=== PATIENT | female | born 1990 | race Caucasian/White ===

== ENCOUNTER 2019-05-24 11:17 | Emergency (ER) | payer OTHER ==
--- OUTSIDE RECORDS SUMMARY | 2019-05-24 11:47 | XMS REPORT | Continuity of Care Document ---
:1990 External Reference #:[id number] Author Name Alden Lawson PA Address [address] [place] [address] Problems Active Problems Provider Date Moderate major depression, single episode Alden Lawson PA Onset: 06/18/2018 Mild persistent asthma Alden Lawson PA Onset: 06/18/2018 History of concussion injury of brain Alden Lawson PA Onset: 06/18/2018 Note: x2 -- 2012 [college] and 2017 [fall on ice] Social History Type Date Description Comments Sex Unknown ETOH Use Occasionally consumes wine Tobacco Use Start: Unknown Patient has never smoked Recreational Drug Use Denies Drug Use Smoking Status Reviewed: 04/22/19 Patient has never smoked Exercise Type/Frequency Lefting Running X 3 Weekly Sun Exposure moderate amount of sun exposure Sun Exposure Uses sunscreen Seat Belt/Car Seat always uses seat belt Guns in Home No Recent Travel There has not been recent travel abroad Allergies, Adverse Reactions, Alerts Description No Known Drug Allergies Medications Active Medications SIG Qnty Indications Ordering Date Provider Breo Ellipta 1 puff daily 3month J45.30 Suzette Tapia 11/05/2017 MD Yesenia 100-25mcg/Inh Aerosol Proair HFA 2 puffs every 6 8.500gm J45.30 Suzette Tapia 11/05/2017 hours as needed MD Yesenia 108(90Base) mcg/Act wheezing/sob [may Aerosol substitute covered med] BCP Suzette Tapia 09/10/2017 MD Yesenia History Medications Amoxicillin/Clavulanate 1 by mouth 20tabs J01.90 Regina 02/02/2019 - Potassium every 12 Suzette Patterson MD 02/12/2019 875-125mg Tablets hours Medications Administered in Office Medication SIG Qnty Indications Ordering Provider Date Albuterol Up To 2.5mg & Suzette Tapia MD 11/05/2017 Ipatropium [place] Up To 0.5mg Non-Compd Injection Immunizations CPT Code Status Date Vaccine Lot # [id number] Given 04/22/2019 Influenza Vac, Quadrivalent, Split, 0.5mL Dosage, [id number] Im Use [id number] Given 06/18/2018 Influenza Vac, Quadrivalent, Split, 0.5mL Dosage, [id number] Im Use Vital Signs Date Vital Result Comment 04/22/2019 8:33am Weight 150.00 lb Heart Rate 93 /min BP Systolic 129 mmHg BP Diastolic 73 mmHg Height 66.5 inches 5'6.50" BMI (Body Mass Index) 23.8 kg/m2 02/02/2019 2:12pm Body Temperature 99.3 F Weight 149.00 lb Heart Rate 68 /min BP Systolic 116 mmHg BP Diastolic 81 mmHg Height 66.5 inches 5'6.50" BMI (Body Mass Index) 23.7 kg/m2 Results Description No Information Available Procedures Description No Information Available Medical Devices Description No Information Available Encounters Type Date Location Provider Dx Diagnosis Office Visit 02/02/2019 Alden Magaña PA J01.90 Acute sinusitis, 2:40p unspecified F32.1 Major depressive disorder, single episode, moderate Office Visit 11/20/2018 8:40a Alden Magaña PA F32.1 Major depressive disorder, single episode, moderate J45.30 Mild persistent asthma, uncomplicated S06.0x0S Concussion without loss of consciousness, sequela Z68.25 Body mass index (BMI) 25.0-25.9, adult Assessments Date Code Description Provider 04/22/2019 F32.1 Major depressive disorder, single episode, Alden Lawson PA moderate 04/22/2019 J45.30 Mild persistent asthma, uncomplicated Alden Lawson PA 04/22/2019 S06.0x0S Concussion without loss of consciousness, Alden Lawson PA sequela 04/22/2019 Z23 Encounter for immunization Alden Lawson PA 02/02/2019 J01.90 Acute sinusitis, unspecified Alden Lawson PA 02/02/2019 F32.1 Major depressive disorder, single episode, Alden Lawson PA moderate 11/20/2018 F32.1 Major depressive disorder, single episode, Alden Lawson PA moderate 11/20/2018 J45.30 Mild persistent asthma, uncomplicated Alden Lawson PA 11/20/2018 S06.0x0S Concussion without loss of consciousness, Alden Lawson PA sequela 11/20/2018 Z68.25 Body mass index (BMI) 25.0-25.9, adult Alden Lawson PA Plan of Treatment Future Appointment(s):10/21/2019 9:00 am - Alden Lawson PA at [id number] - Alden Lawson, PAF32.1 Major depressive disorder, single episode, moderateComments:no FH.Lost grandparent in July. No specific trigger. h/o anxiety 9th grade. 4months counseling felt like came thru. Doing daily meditation. trying to keep active. Feels like started in Jun 2017has joined the [employer] and was invited out to the [employer] for [employer]. +allowing herself to leave and go home. +BF finding time to leave work also. Able to let things go more easily. +still with days or up and down but very much improved. ??Anxiety vs OCPD. doing very well at 100mg. no complaints. has been more open with everyone surrounding her. will monitor weight gain. up 15lbs but stable at this point. ??sedentary job vs meds. "worth it with the mental clarity." UPDATE 09/17:would like to try to wean back. has many tools in place. +exercising. +meditation. +engaged. UPDATE 11/20:weaning back Sertraline and doing okay. UPDATE 02/02:off med and losing weight. feelinggood overall. UPDATE 04/22:doing extremely well off meds. father with double bypass surgery and planning wedding -- feeling okay and managing.Follow up:f/u 6months PEJ45.30 Mild persistent asthma, uncomplicatedComments:Breo samples given and "breathing so much better." Recheck PFT with improved fxn. Rx breo sent to pharmacy . 20% improvement with PFT with Breo 100. UPDATE 04/22:stable on Breo. occasionalAlbuterol usage.S06.0x0S Concussion without loss of consciousness, sequelaComments:concussion with a sip and fall on ice couple weeks ago. no residual effects. just returned to working out. h /o concussion x1 in college. no issues.Z23 Encounter for immunization Functional Status Description No Information Available Mental Status Description No Information Available Referrals Description No Information Available
--- NOTE | 2019-05-24 14:20 | ED ---
Abdominal Pain/Female - HPI Summary HPI Summary: Patient is a 28-year-old female who presents emergency department for pelvic pain and cramping 3 days. Patient notes that she has irregular periods of believes she is due to start her period soon. Patient states cramping felt different than typical menstrual cramps. Patient notes some increased clear discharge a few days ago that has resolved. She also notes urine discoloration a few days ago as well which has resolved. Patient otherwise denies fever, vomiting, diarrhea. Patient has no past medical history. Symptoms are moderate in severity. No current modifying factors. - History of Current Complaint Chief Complaint: EDUrogenitalProblems Stated Complaint: PELVIC PAIN PER PT Time Seen by Provider: 05/24/19 13:53 Hx Obtained From: Patient Hx Last Menstrual Period: 04/15/16 Pain Intensity: 5 Allergies/Adverse Reactions: Allergies Allergy/AdvReac Type Severity Reaction Status Date / Time No Known Allergies Allergy Verified 05/24/19 11:31 Home Medications: Home Medications Loratadine/Pseudoephedrine [Claritin-D 12 Hour Tablet] 1 each PO DAILY 05/24/19 [History Confirmed 05/24/19] Multivitamins/Minerals TAB* [Thera M Plus TAB*] 1 tab PO DAILY 05/24/19 [ History Confirmed 05/24/19] PMH/Surg Hx/FS Hx/Imm Hx Previously Healthy: Yes Infectious Disease History: No Infectious Disease History: Denies: Traveled Outside the [place] in Last 30 Days - Family History Known Family History: Positive: Non-Contributory Negative: Blood Disorder - Social History Occupation: Employed Full-time Lives: With Family Alcohol Use: Rare Substance Use Type: Reports: None Smoking Status (MU): Never Smoked Tobacco Review of Systems Constitutional: Negative Negative: Fever, Chills Cardiovascular: Negative Respiratory: Negative Gastrointestinal: Negative Genitourinary: Other - Pelvic pain Skin: Negative All Other Systems Reviewed And Are Negative: Yes Physical Exam Triage Information Reviewed: Yes Vital Signs On Initial Exam: Initial Vitals Temp Pulse Resp BP Pulse Ox 98.6 F 90 18 139/97 100 05/24/19 11:29 05/24/19 11:29 05/24/19 11:29 05/24/19 11:29 05/24/19 11:29 Vital Signs Reviewed: Yes Appearance: Positive: Well-Appearing - Pt. lying in bed in NAD. SO present. Skin: Positive: Warm, Dry Head/Face: Positive: Normal Head/Face Inspection Eyes: Positive: Normal, EOMI Neck: Positive: Supple Respiratory/Lung Sounds: Positive: Clear to Auscultation, Breath Sounds Present Cardiovascular: Positive: Normal, RRR Abdomen Description: Positive: Other: - Abd. is soft with tenderness to R and L adnexa. No rebound or guarding. No CVA tenderness. Pelvic Exam: Positive: Other - Pelvic exam performed with [facility]. External genitalia unremarkable. Speculum reveals a small amount of bleeding from cervix. Negative CMT. No purulent discharge. Neurological: Positive: Normal, CN Intact II-III Psychiatric: Positive: Affect/Mood Appropriate Procedures - Sedation Patient Received Moderate/Deep Sedation with Procedure: No Diagnostics - Vital Signs Vital Signs Temp Pulse Resp BP Pulse Ox 05/24/19 13:09 98.5 F 88 16 114/76 100 05/24/19 11:29 98.6 F 90 18 139/97 100 - Laboratory Result Diagrams: 05/24/19 15:07 05/24/19 15:07 Lab Statement: Any lab studies that have been ordered have been reviewed, and results considered in the medical decision making process. Abdominal Pain Fem Course/Dx - Course Course Of Treatment: Patient presenting with pelvic pain/cramping. She is afebrile and well-appearing. Laboratory studies show normal CBC and negative . Urinalysis negative for infection. Transvaginal ultrasound ordered to evaluate for ovarian torsion and/or ovarian cyst and was negative for acute findings per radiology. Pelvic exam shows small amount of blood from cervix. Suspect patient is starting her menstrual cycle. Cultures were obtained and pending. Patient comfortable with DC home to follow-up with [facility]. Anti- inflammatories as directed for pain. Will call if cultures are positive. We' ll return to ER symptoms change or worsen. Patient understands and agrees with plan. - Diagnoses Differential Diagnosis: Positive: Appendicitis, Constipation, Ovarian Cyst, Pelvic Inflammatory Disease, , Urinary Tract Infection Provider Diagnoses: Pelvic pain, Dysmenorrhea Discharge ED - Sign-Out/Discharge Documenting (check all that apply): Patient Departure - Discharge Plan Condition: Good Disposition: HOME Patient Education Materials: Pelvic Pain in Women (ED) Referrals: Lupe Almeida MD [Medical Doctor] - Alden Lawson [Primary Care Provider] - Additional Instructions: Schedule a close follow up appointment with [facility] for further evaluation of pain Ibuprofen for pain as directed Can apply warm compress to help with pain Will call if cultures are positive Return to ER if symptoms change or worsen - Billing Disposition and Condition Condition: GOOD Disposition: Home - Attestation Statements Provider Attestation: I was available for consultation for this patient. I did not evaluate the patient, or participate in any medical decision making or disposition decisions unless I am specifically named in the chart as having consulted on the patient. If I have consulted on the patient, please see my own ED note on the patient encounter. Mary Mccormack MD
[2019-05-24 14:37] LABS: Urine Appearance Clear; Urine Color Straw; Urine Specific Gravity 1.005 (1.010-1.030)
[2019-05-24 14:38] LABS: Urine Bilirubin Negative (Negative); Urine Blood Negative (Negative); Urine Glucose Negative (Negative); Urine Ketones Negative (Negative); Urine Nitrite Negative (Negative); Urine Protein Negative (Negative); Urine Urobilinogen Negative (Negative)
[2019-05-24 15:18] LABS: ABS Lymphocytes 1.4 10^3/ul (1.0-4.8); ABS Monocytes 0.4 10^3/ul (0-0.8); ABS Neutrophils 3.3 10^3/ul (1.5-7.7); Eosinophil % 0.1 %; Hematocrit 37 % (35-47); Hemoglobin 12.6 g/dL (12.0-16.0); Lymphocyte % 26.8 %; Mean Corpuscular HGB Conc 34 g/dL (31-36); Mean Corpuscular Hemoglobin 30 pg (27-31); Mean Corpuscular Volume 88 fL (80-97); Mean Platelet Volume 8.5 fL (7.4-10.4); Nucleated Red Blood Cells % 0.1; Platelet Count 164 10^3/uL (150-450); Red Blood Count 4.15 10^6 /uL (3.70-4.87); Red Cell Distribution Width 12 % (10-15); White Blood Count 5.1 10^3/uL (3.5-10.8)
[2019-05-24 15:42] LABS: HCG Pregnancy < 0.60 mIU/mL
[2019-05-24 15:52] LABS: ALT 10 U/L (7-52); AST 14 U/L (13-39); Albumin 4.6 g/dL (3.2-5.2); Albumin/Globulin Ratio 2.3 (1-3); Alkaline Phosphatase 41 U/L (34-104); Anion Gap 5 mmol/L (2-11); BUN/Creatinine Ratio 12.5 (8-20); Blood Urea Nitrogen 9 mg/dL (6-24); C Reactive Protein < 1.00 mg/L (<8.01); CO2 Carbon Dioxide 26 mmol/L (22-32); Calcium 9.2 mg/dL (8.6-10.3); Chloride 110 mmol/L (101-111); EGFR African American 118.5 (>60); EGFR Non-African American 97.9 (>60); Glucose 96 mg/dL (70-100); Potassium 3.9 mmol/L (3.5-5.0); Sodium 141 mmol/L (135-145); Total Protein 6.6 g/dL (6.4-8.9)
[2019-05-24 17:42] VITALS: BP 117/71
[2019-05-25 12:25] LABS: Chlamydia trachomatis NAA Negative (Negative); Neisseria gonorrhoeae (GC) NAA Negative (Negative)
== END 2019-05-24 16:15 | disposition home or self-care (01) ==
LOC: ED 11:17
DX: R10.2 Pelvic and perineal pain (principal); N94.6 Dysmenorrhea, unspecified
CPT/HCPCS: 36415; 76830; 80053; 81003; 84702; 85025; 86140; 87480; 87491; 87510; 87591; 87661; 99283